=== PATIENT | male | born 1985 | race Caucasian/White ===

== ENCOUNTER 2021-03-16 10:57 | Emergency (ER) | payer MEDICAID ==
--- NOTE | 2021-03-16 11:23 | EDM.PDOC ---
ED HPI GENERAL MEDICAL PROBLEM - General Chief Complaint: General Stated Complaint: BACK AND KNEE PAIN Time Seen by Provider: 03/16/21 11:23 Source of Information: Reports: Patient History Limitations: Reports: No Limitations - History of Present Illness INITIAL COMMENTS - FREE TEXT/NARRATIVE: 35-year-old male presents to the ED for evaluation of intermittent black tarry stools off and on for the last 2 months. Patient admits that he has been using aspirin and other NSAIDs to help fight off pain in his lower back and right knee. Right lower back pain is been getting worse over the last 6 to 8 weeks and has right foot numbness and tingling at all times. States that sometimes he is dragging the right foot. Right knee pain has been present for a long time but is worse the last 6 weeks. Of note the patient weighs 392 pounds. He has no problems voiding or defecating. Patient vomited in the triage room this morning. He vomited once at home prior to coming to the ED. Unclear why he is feeling nauseated. States he did have some alcohol over the long weekend but nothing to excess. Patient does admit to intermittent epigastric discomfort aggravated by spicy food and acidic food such as lemon juice. Patient states that due to the intensity of pain at times he will vomit. Patient has never been told that he is diabetic. Blood pressure is usually elevated when he comes in to see the doctor. Onset: Other (Knee pain for couple of years. Low back pain over the last 6 to 8 weeks rating down his right posterior lateral extremity to the foot. Intermittent foot drop.) Onset Date: 02/03/21 Duration: Week(s):, Getting Worse (Low back pain and right foot pain are getting worse.) Location: Reports: Back (Right lower back pain with radiculopathy into the right lower extremity to the foot.), Other (Chronic pain right medial knee.) Quality: Reports: Ache, Throbbing Severity: Moderate (7-8 out of 10.) Improves with: Reports: Rest Worsens with: Reports: Other (Worse with walking and movement.) Context: Reports: Other (Spontaneous occurrence with no known injury.). Denies: Activity, Exercise, Lifting, Sick Contact, Trauma Associated Symptoms: Reports: Loss of Appetite, Malaise, Nausea/Vomiting (Vomited x2 this morning without any blood.), Shortness of Breath. Denies: Confusion, Chest Pain, Cough, cough w sputum, Diaphoresis, Fever/Chills, Headaches, Rash, Seizure ( Bilious emesis.), Syncope (On exertion) Treatments TRANSPLANTER ORCHID: Reports: Acetaminophen, Aspirin, NSAIDS (Primarily Advil.) Generalized Pain Score (Numeric/FACES): 9 - Related Data Allergies Allergy/AdvReac Type Severity Reaction Status Date / Time No Known Allergies Allergy Verified 03/16/21 11:16 Home Meds: Home Meds Gabapentin [Neurontin] 600 mg PO BID #60 tab 03/16/21 [Rx] Omeprazole 20 mg PO BID #60 cap.cr 03/16/21 [Rx] amLODIPine Besylate [Amlodipine Besylate] 10 mg PO DAILY #30 tablet 03/16/21 [Rx] oxyCODONE HCl/Acetaminophen [Percocet 10-325 mg Tablet] 1 - 2 each PO Q4H PRN #40 tablet 03/16/21 [Rx] predniSONE [Prednisone] 20 mg PO ASDIRECTED #18 tablet 03/16/21 [Rx] Past Medical History Cardiovascular History: Reports: Hypertension, SOB on Exertion Musculoskeletal History: Reports: Back Pain, Chronic (For the last 2 months.), Other (See Below) (Pain right medial knee for couple of years getting worse.) Endocrine/Metabolic History: Reports: Obesity/BMI 30+ Social & Family History - Alcohol Use Alcohol Use History: Yes Days Per Week of Alcohol Use: 2 Alcohol Use in Last Twelve Months: Yes Alcohol Use Frequency: Socially - Living Situation & Occupation Living situation: Reports: Occupation: Unemployed (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 Denies: Fever, Chills, Decreased Appetite, Weight Loss HEENT: Reports: No Symptoms Respiratory: Reports: Shortness of Breath Cardiovascular: Reports: Blood Pressure Problem Endocrine: Reports: No Symptoms GI/Abdominal: Reports: No Symptoms : Reports: Frequency Musculoskeletal: Reports: Back Pain (Right lower back pain rating down the posterior lateral aspect of his right leg combined with L5 nerve root irritation), Joint Pain (Pain right medial knee for a couple of years.) Skin: Reports: No Symptoms Neurological: Reports: Other (Appreciates left foot drop intermittently the last 6 weeks.) Psychiatric: Reports: No Symptoms Hematologic/Lymphatic: Reports: No Symptoms Immunologic: Reports: No Symptoms ED EXAM, GENERAL - Physical Exam Exam: See Below Exam Limited By: No Limitations General Appearance: Alert, WD/WN, Mild Distress, Other (Temperature is 35.9 degrees. Heart rate at the bedside was 101 and sinus. Respiratory is 20 with O2 sats 100% room air BP initially elevated at 148 107. Currently it is 172/126 which is likely incorrect.) Eye Exam: Right Eye: Normal Inspection (No blepharal pallor or), Bilateral Eye: PERRL Throat/Mouth: Normal Inspection, Normal Lips, Normal Oropharynx Head: Atraumatic, Normocephalic Neck: Normal Inspection, Supple, Non-Tender, Full Range of Motion. No: Lympha denopathy (L), Lymphadenopathy (R) Respiratory/Chest: No Respiratory Distress, Lungs Clear, No Accessory Muscle Use, Decreased Breath Sounds Cardiovascular: Normal Peripheral Pulses, Regular Rate, Rhythm, No Edema, No Gallop, No Murmur, No Rub Peripheral Pulses: 2+: Carotid (L), Carotid (R), Posterior Tibial (L), Posterior Tibial (R), Dorsalis Pedis (L), Dorsalis Pedis (R) GI/Abdominal: Normal Bowel Sounds, Soft, Non-Tender, No Organomegaly, No Abnormal Bruit, No Mass, Pelvis Stable, Other (Morbidly obese. No solid organ enlargement appreciated. No surgical scars.) (Male) Exam: No Hernia Back Exam: Decreased Range of Motion ( Right lower back mild.), Muscle Spasm ( Point of maximal tenderness is over the L4-L5 facet joint but is considered minimal.), Paraspinal Tenderness, Other (Patient does have mild paraspinal muscle spasm on the right lumbar spine.) Extremities: Normal Inspection, No Pedal Edema, Other (Crepitus in the knee with catching suggesting medial meniscal tear. Been having problem with his knee for couple of years.) Neurological: Alert, Oriented, CN II-XII Intact, Normal Cognition, Other (Reflexes to the lower extremities 1+ and symmetrical at the knees. No Achilles reflex bilaterally.) Psychiatric: Normal Affect, Normal Mood Skin Exam: Warm, Dry, Intact, Normal Color, No Rash Course - Vital Signs Last Recorded V/S: Last Vital Signs Temp 36.1 C 03/16/21 15:40 Pulse 88 03/16/21 15:40 Resp 18 03/16/21 15:40 BP 154/93 H 03/16/21 15:40 Pulse Ox 98 03/16/21 15:40 Orthostatic Blood Pressure [ 177/124 Standing] - Orders/Labs/Meds Orders: Active Orders 24 hr Category Date Time Status Durable Medical Equipment for Discharge [DME for Oth 03/16/21 14:49 Ordered Discharge] [COMM] Stat Labs: Laboratory Tests 03/16/21 03/16/21 03/16/21 Range/Units 11:40 12:02 12:02 WBC 6.27 (4.23-9.07) K/mm3 RBC 5.40 (4.63-6.08) M/mm3 Hgb 17.1 (13.7-17.5) gm/dl Hct 47.8 (40.1-51.0) % MCV 88.5 (79.0-92.2) fl MCH 31.7 (25.7-32.2) pg MCHC 35.8 H (32.2-35.5) g/dl RDW Std Deviation 54.0 H (35.1-43.9) fL Plt Count 237 (163-337) K/mm3 MPV 10.6 (9.4-12.3) fl Neut % (Auto) 77.5 H (34.0-67.9) % Lymph % (Auto) 12.8 L (21.8-53.1) % [place] % (Auto) 8.8 (5.3-12.2) % Eos % (Auto) 0 L (0.8-7.0) Baso % (Auto) 0.6 (0.1-1.2) % Neut # (Auto) 4.86 (1.78-5.38) K/mm3 Lymph # (Auto) 0.80 L (1.32-3.57) K/mm3 [place] # (Auto) 0.55 (0.30-0.82) K/mm3 Eos # (Auto) 0.00 L (0.04-0.54) K/mm3 Baso # (Auto) 0.04 (0.01-0.08) K/mm3 PT (9.7-12.0) SECONDS INR APTT (21.7-31.4) SECONDS Sodium 135 L (136-145) mEq/L Potassium 3.8 (3.5-5.1) mEq/L Chloride 95 L (98-107) mEq/L Carbon Dioxide 25 (21-32) mEq/L Anion Gap 18.8 H (5-15) BUN 6 L (7-18) mg/dL Creatinine 0.9 (0.7-1.3) mg/dL Est Cr Clr Drug Dosing 141.43 mL/min Estimated GFR (MDRD) > 60 (>60) mL/min BUN/Creatinine Ratio 6.7 L (14-18) Glucose 127 H (70-99) mg/dL Calcium 10.0 (8.5-10.1) mg/dL Magnesium 2.0 (1.8-2.4) mg/dL Total Bilirubin 2.7 H (0.2-1.0) mg/dL AST 635 H (15-37) U/L ALT 500 H (16-63) U/L Alkaline Phosphatase 114 (46-116) U/L C-Reactive Protein 0.6 (<1.0) mg/dL Total Protein 8.2 (6.4-8.2) g/dl Albumin 4.2 (3.4-5.0) g/dl Globulin 4.0 gm/dL Albumin/Globulin Ratio 1.1 (1-2) SARS-CoV-2 RNA (NILAM) Negative (NEGATIVE) 03/16/21 Range/Units 12:02 WBC (4.23-9.07) K/mm3 RBC (4.63-6.08) M/mm3 Hgb (13.7-17.5) gm/dl Hct (40.1-51.0) % MCV (79.0-92.2) fl MCH (25.7-32.2) pg MCHC (32.2-35.5) g/dl RDW Std Deviation (35.1-43.9) fL Plt Count (163-337) K/mm3 MPV (9.4-12.3) fl Neut % (Auto) (34.0-67.9) % Lymph % (Auto) (21.8-53.1) % [place] % (Auto) (5.3-12.2) % Eos % (Auto) (0.8-7.0) Baso % (Auto) (0.1-1.2) % Neut # (Auto) (1.78-5.38) K/mm3 Lymph # (Auto) (1.32-3.57) K/mm3 [place] # (Auto) (0.30-0.82) K/mm3 Eos # (Auto) (0.04-0.54) K/mm3 Baso # (Auto) (0.01-0.08) K/mm3 PT 10.9 (9.7-12.0) SECONDS INR 1.02 APTT 26.3 (21.7-31.4) SECONDS Sodium (136-145) mEq/L Potassium (3.5-5.1) mEq/L Chloride (98-107) mEq/L Carbon Dioxide (21-32) mEq/L Anion Gap (5-15) BUN (7-18) mg/dL Creatinine (0.7-1.3) mg/dL Est Cr Clr Drug Dosing mL/min Estimated GFR (MDRD) (>60) mL/min BUN/Creatinine Ratio (14-18) Glucose (70-99) mg/dL Calcium (8.5-10.1) mg/dL Magnesium (1.8-2.4) mg/dL Total Bilirubin (0.2-1.0) mg/dL AST (15-37) U/L ALT (16-63) U/L Alkaline Phosphatase (46-116) U/L C-Reactive Protein (<1.0) mg/dL Total Protein (6.4-8.2) g/dl Albumin (3.4-5.0) g/dl Globulin gm/dL Albumin/Globulin Ratio (1-2) SARS-CoV-2 RNA (NILAM) (NEGATIVE) Meds: Medications Discontinued Medications Generic Name Dose Route Start Last Admin Trade Name Freq PRN Reason Stop Dose Admin Amlodipine Besylate 10 mg 03/16/21 12:57 03/16/21 13:30 Amlodipine 10 Mg Tab PO 03/16/21 12:58 10 mg ONETIME ONE Administration Hydromorphone HCl 1 mg 03/16/21 11:50 03/16/21 12:04 Hydromorphone 1 Mg/Ml Syringe IVPUSH 03/16/21 11:51 1 mg ONETIME ONE Administration Sodium Chloride 1,000 mls @ 500 mls/hr 03/16/21 12:00 03/16/21 12:01 Normal Saline IV 500 mls/hr ASDIRECTED TATY Administration Labetalol HCl 20 mg 03/16/21 12:57 03/16/21 13:28 Labetalol 100 Mg/20 Ml Mdv IVPUSH 03/16/21 12:58 20 mg ONETIME ONE Administration Protocol Metoclopramide HCl 10 mg 03/16/21 11:50 03/16/21 12:02 Metoclopramide 10 Mg/2 Ml Sdv IVPUSH 03/16/21 11:51 10 mg ONETIME ONE Administration - Radiology Interpretation Free Text/Narrative:: 35-year-old male presents to the ED having vomited x2 this morning. Once at home and once in the ED. States he seems quite severe pain primarily in his right lower back rating down the right leg to his foot. Over the last 6 weeks he has had increased low back pain with paresthesias and radiculopathy down the right lower extremity. Reports intermittent right foot drop. Chronic pain problems with his right knee medial aspect. History is likely compatible with an internal derangement such as medial meniscal tear. By history has had intermittent dark black tarry stools for 2 months intermittently likely related to NSAID use and aspirin use for back pain and knee pain. Does use alcohol socially. Clinically does not appear anemic. Plan IV normal saline at 500 mils an hour. Will give Reglan 10 mg IV and Dilaudid 1 mg IV for pain relief. Routine labs including coags. Likely peptic ulcer disease secondary to NSAID and aspirin use for chronic pain relief. Will CT his lumbar spine although he is upper limits of the gantry for CT - Re-Assessments/Exams Free Text/Narrative Re-Assessment/Exam: 03/16/21 12:57 blood pressure remains elevated at 191/113. Patient appears to have chronic uncontrolled hypertension. He will be given labetalol 20 mg IV and amlodipine 10 mg by mouth. 03/16/21 12:59 White count is normal at 6.27. Differential is 77.5% neutrophils. Hemoglobin is 17.1 with hematocrit of 47.8 suggesting hemoconcentration. MCV is 88.5. Platelet count is 237,000. PT is 10.9 with an INR of 1.02. PTT is 26.3. Sodium is slightly low at 135. Potassium is 3.8. Chloride 95 with a bicarb of 25. Anion gap is elevated at 18.8. BUN is 6 with a creatinine of 0.9. GFR is greater than 60. Glucose is 127. Calcium is 10.0. Magnesium is 2.0. Total bilirubin is 2.7 AST elevated at 635 and ALT elevated at 500. This patient may be drinking more alcohol of all than he lets on. Alkaline phosphatase is normal at 114. C-reactive protein 0.6 COVID-19 screen is negative. 03/16/21 13:22 x-rays of the right knee reveals mild lateral joint space narrowing is seen within the patellofemoral joint with slight patellar osteophytes. No joint effusion appreciated. Medial and lateral joint joint compartments are maintained in height. No acute fracture or subluxation evident. No loose bodies identified. CT of the lumbar spine has been performed. It reveals that there is anterior fusion of thoracic vertebra 10,11 and 12 suspicious for ankylosing spondylitis. There also appears to be mild wedge compression deformities of these vertebra. The lumbar vertebrae appear to be normal. There is mild osteophyte formation anteriorly at L5. Disc spaces appear to be well-maintained. There is mild neuroforaminal narrowing on the right side at the L4-5 level. I will await the radiologist's opinion. 03/16/21 14:05 CT scan of the lumbar spine has been completed without contrast. Diffuse fatty infiltration is seen within the liver. No other visualized intra-abdominal abnormality is identified. There are bridging osteophytes noted at the T10-11 and the T11-12 levels. Slight loss of vertebral body height is seen within T10, T11 and T12 which appear to be old. Vertebral body heights are maintained within the lumbar spine. Vacuum disc phenomena is noted at the L4-5 disc level. Mild disc space narrowing is noted at the L5-S1 level. L5-S1 level also shows diffuse posterior disc bulge with prominent posterior lateral spurring on both sides but is worse on the left. Diffuse disc bulges noted at the L4-L5 level as well. Left-sided neuroforaminal stenosis is noted at the L5- S1 level. Right neural foramen is fairly well patent at L5-S1. No acute fracture is seen. No abnormal subluxation is seen. Patient was so advised of the CT findings. I still have concerns due to radiculopathy and paresthesias in his right foot. His knee pain appears to be a separate issue and has been going on for a lengthy period of time like 2 years. It will catch and give out intermittently suggesting a medial meniscal tear. For this reason I suggested follow-up with Dr. Hayes today in clinic. In the interim he will be placed on Percocet 10/325 mg strength with idea of taking 1 tablet every 4-6 hours necessary for pain relief. Due to concerns for dark tarry stools reported intermittently no NSAIDs are to be used. Placed him on Prilosec 20 mg twice daily for 10 days and then once daily at bedtime. Patient will be placed on prednisone 20 mg twice daily for 6 days and then once daily in the morning only for another 6 days with hopes of not aggravating underlying dyspepsia or peptic ulcer disease. He is to follow-up with primary care physician in 10 to 12 days time. He would need a course of physiotherapy before considering MRI and potential surgical intervention in his lower back. 03/16/21 14:45: Patient has completed all of his IV fluids. He will therefore be discharged to home. He will be given crutches and he is 6 foot 3. He was thinking a walker might work better but I suspect at this time he will do better with crutches and nonweightbearing on the right side until his pain settles down. Departure - Departure Time of Disposition: 14:50 Disposition: Home, Self-Care 01 Condition: Fair Clinical Impression: Sciatica of right side associated with disorder of lumbosacral spine, Internal derangement of right knee, Dehydration - Discharge Information *PRESCRIPTION DRUG MONITORING PROGRAM REVIEWED*: Not Applicable *COPY OF PRESCRIPTION DRUG MONITORING REPORT IN PATIENT REA: Not Applicable Prescriptions: amLODIPine Besylate [Amlodipine Besylate] 10 mg PO DAILY #30 tablet Gabapentin [Neurontin] 600 mg PO BID #60 tab Omeprazole 20 mg PO BID #60 cap.cr oxyCODONE HCl/Acetaminophen [Percocet 10-325 mg Tablet] 1 - 2 each PO Q4H PRN #40 tablet PRN Reason: Sciatica. Right knee pain predniSONE [Prednisone] 20 mg PO ASDIRECTED #18 tablet Instructions: Sciatica, [id number], Dehydration, Adult, [id number] Referrals: PCP,None [Primary Care Provider] - Forms: ED Department Discharge Additional Instructions: Evaluation in the emergency room today in regards to right lower extremity pain associated with right lower back pain. Identified that you have 2 separate problems. New onset sciatica with numbness and tingling down to your foot on the right side associated with increased lower back pain appears to be secondary to inflammation of the facet joints in your lower back as well as nerve root irritation ie. the lumbar [address] of the lumbar spine does reveal degenerative changes particular at the L5-S1 which is the lowest bone in your lower back. The disc at this level is just about gone completely which we call a vacuum phenomenon. Treatment will be prednisone 20 mg twice daily for 6 days and then once in the morning only for another 6 days to help reduce inflammation of the nerve root. Pain control with gabapentin 600 mg at bedtime and in the morning for the next 21 days. Percocet tabs 10/325 mg strength 1 or 2 every 4-6 hours necessary for pain relief. Ideally 1 tablet every 4 hours should suffice with the gabapentin. Of note pain pills always cause constipation. Suggest using MiraLAX powder 17 g once daily which is an [id number]-gnqzglr medication and mix it with beverage of choice as it does not have any taste. Taken once daily this will prevent constipation from the pain pills. No further use of Aleve or Advil due to suspect upper GI bleeding from a ulcer which is causing dark black tarry stools intermittently. You need to take medication Prilosec better known as omeprazole which is [id number] 20 mg morning and bedtime for 10 days and then once daily at bedtime. This should would heal up ulceration of the stomach. Second problem identified is recurrent problems with the right medial knee joint. X-rays do not reveal any advanced degenerative arthritic change. History is strongly suggestive of a torn cartilage on the inside of your right knee. I would suggest follow-up with Dr. Hayes today orthopedic surgeon here in our hospital on the second floor the side of the hospital for consultation in regards to your right knee pain. Suggest follow-up with your personal care physician or if you do not have one arranged to see somebody within the next 10 days in regards to your back pain. If the back pain and right foot pain persist you will need further evaluation by imaging of your back with MRI and back surgeon or neurosurgeon for consultation. Our hope is that the medication settles down the back pain and the right foot pain. Suggest nonweightbearing crutch walking until feeling better. Please phone [phone] to arrange an appointment to see Dr. Hayes in regards to your right knee pain. A point will likely take the better part of 2 weeks to get in as he is extremely busy. Third problem was elevated blood pressure and clinically this has been going on for a lengthy period of time. Suggest using amlodipine 10 mg once daily at bedtime for blood pressure control. Sepsis Event Note (ED) - Evaluation Sepsis Screening Result: No Definite Risk - Focused Exam Vital Signs: Vital Signs Temp Pulse Resp BP BP Pulse Ox 03/16/21 15:40 36.1 C 88 18 154/93 H 98 03/16/21 13:30 172/96 H 03/16/21 13:28 36.4 C 100 18 172/96 H 95 03/16/21 11:07 35.9 C L 101 H 20 148/107 H 100 - My Orders Last 24 Hours: My Active Orders 03/16/21 14:49 Durable Medical Equipment for Discharge [DME for Discharge] [COMM] Stat - Assessment/Plan Last 24 Hours: My Active Orders 03/16/21 14:49 Durable Medical Equipment for Discharge [DME for Discharge] [COMM] Stat
[2021-03-16] MEDS ORDERED: Metoclopramide 10 MG/2 ML SDV IVPUSH ONE (11:50)
[2021-03-16] MEDS ORDERED: HYDROmorphone 1 MG/ML Syringe IVPUSH ONE (11:50)
[2021-03-16] MEDS ORDERED: Sodium Chloride 0.9% 1,000 ML IV SCH (12:00)
[2021-03-16] MEDS ORDERED: amLODIPine 10 MG Tab PO ONE (12:57)
[2021-03-16] MEDS ORDERED: Labetalol 100 MG/20 ML MDV IVPUSH ONE (12:57)
--- NOTE | 2021-03-16 13:37 | CT ---
CT lumbar spine Technique: Multiple axial sections were obtained from the top of T10 inferiorly through the L5-S1 disc. Reconstructed coronal and sagittal images were obtained. Comparison: No prior lumbar spine imaging is available. Findings: Diffuse fatty infiltration is seen within the liver. No other visualized intra-abdominal abnormality is seen. Bridging osteophytes are noted at T10-11 and T11-12. Slight loss of vertebral body height is seen within T10, T11 and T12 which appear to be old. Vertebral body heights are maintained within the lumbar spine. Vacuum disc phenomena is noted within the L4-5 disc. Mild disc space narrowing is noted at L5-S1. L5-S1 level also shows diffuse posterior disc bulge with prominent posterolateral spurring on both sides (worse on the left side). Diffuse bulge is noted at L4-5. Left-sided neural foraminal stenosis is noted at L5-S1. Right neural foramina is fairly well patent at L5-S1. No acute fracture is seen. No abnormal subluxation is seen. Impression: 1. Degenerative change as noted above. 2. Nothing acute is appreciated. Diagnostic code #3
--- NOTE | 2021-03-16 13:43 | CR ---
Right knee: AP, lateral and sunrise patellar views of the right knee were obtained. Mild lateral joint space narrowing is seen within the patellofemoral joint with slight patellar osteophytes. No joint effusion is seen. Medial and lateral joint compartments are maintained in height. No acute fracture or subluxation is seen. Impression: 1. Mild degenerative change within the lateral patellofemoral joint. 2. Right knee study is otherwise unremarkable. Diagnostic code #2
== END 2021-03-16 15:45 | disposition home or self-care (01) ==
LOC: JD.ED 10:57
DX: M54.41 Lumbago with sciatica, right side (principal); M23.91 Unspecified internal derangement of right knee; E86.0 Dehydration; I10 Essential (primary) hypertension; E66.9 Obesity, unspecified; Z20.822 Contact with and (suspected) exposure to COVID-19; Z68.42 Body mass index [BMI] 45.0-49.9, adult
CPT/HCPCS: 36415; 72131; 73562; 80053; 83735; 85025; 85610; 85730; 86140; 87635; 96374; 96375; 99284; A9270; J1170; J2765; J3490; J7030; U0002